=== PATIENT | male | born 1960 | race Caucasian/White ===

== ENCOUNTER → 2017-07-11 | Outpatient (CLI) | payer OTHER | LOC: FIMAGING 14:06 | PROVIDERS: ATTEND Family Medicine Sports Medicine | DX: R68.84 Jaw pain (principal); R51 Headache; W19.XXXS Unspecified fall, sequela ==

== ENCOUNTER → 2018-03-11 | Outpatient (CLI) | payer OTHER | LOC: FIMAGING 11:23 | PROVIDERS: ATTEND Physical Medicine & Rehabilitation Neuromuscular Medicine | DX: M43.16 Spondylolisthesis, lumbar region (principal); M51.36 Other intervertebral disc degeneration, lumbar region ==

== ENCOUNTER 2018-05-16 09:30 | Inpatient (IN) | payer OTHER ==
[2018-05-18] MEDS ORDERED: ACETAMINOPHEN 500 MG TAB PO ONE (05:42)
[2018-05-18] MEDS ORDERED: ceFAZolin 2 GM/DEXTROSE 100 ML IV ONE (05:42)
[2018-05-18] MEDS ORDERED: GABAPENTIN 300 MG CAP PO ONE (05:42)
[2018-05-18] MEDS ORDERED: LR 1,000 ML IV ONE (05:44)
[2018-05-18] MEDS ORDERED: BACITRACIN 50,000 UNITS/10 ML SYR IRR ONE (06:48)
[2018-05-18] MEDS ORDERED: BUPIVACAINE 0.25% 30 ML SDV ONE (06:48)
[2018-05-18] MEDS ORDERED: CITRATE DEXTROSE SOLN 500 ML BAG ONE (06:48)
[2018-05-18] MEDS ORDERED: EPINEPHrine 1 MG/ML INJ ONE (06:48)
[2018-05-18] MEDS ORDERED: CHLORHEXIDINE GLUC HIBICLENS 118 ML BTL TP ONE (06:48)
[2018-05-18] MEDS ORDERED: THROMBIN (BOVINE) 20,000 UNIT VIAL TP ONE (06:49)
--- NOTE | 2018-05-18 06:56 | PDHPUP ---
History & Physical Update H&P update statement: This history and physical update is based on an assessment of the patient which was completed after admission or registration (within 24 hours), but prior to the surgery/procedure. H&P update: H&P reviewed & patient examined, no change in patient's condition since H&P completed (Consents signed. Site marked and all questions answered.)
[2018-05-18] MEDS ORDERED: MIDAZOLAM 2 MG/2 ML VIAL ONE (07:10)
[2018-05-18] MEDS ORDERED: PROPOFOL/EMULSION 500 MG/50 ML BOTTLE IV ONE (07:10)
[2018-05-18] MEDS ORDERED: fentaNYL 100 MCG/2 ML INJ ONE ×2 (07:10→10:22)
[2018-05-18] MEDS ORDERED: morphINE PF 0.2 MG in SYRINGE INTRATHECAL 1 SYR IT ONE (07:27)
[2018-05-18] MEDS ORDERED: DEXAMETHASONE 4 MG/ML VIAL IVP PRN (07:47)
[2018-05-18] MEDS ORDERED: ALBUTEROL 3 ML DEYVIAL IH PRN (07:47)
[2018-05-18] MEDS ORDERED: ONDANSETRON 4 MG/2 ML VIAL IVP PRN ×2 (07:47→10:06)
[2018-05-18] MEDS ORDERED: LR 500 ML IV PRN (07:47)
[2018-05-18] MEDS ORDERED: PROMETHAZINE HCL 25 MG/ML INJ IVP PRN (07:47)
[2018-05-18] MEDS ORDERED: NALOXONE HCL 0.4 MG/ML INJ IVP PRN ×2 (07:47→10:06)
[2018-05-18] MEDS ORDERED: DIAZEPAM 5 MG/ML 1 ML SYR IVP PRN (07:47)
--- NOTE | 2018-05-18 07:47 | PDANEPAE ---
ANE Past Medical History - Cardiovascular History Hx Hypertension: No Hx Arrhythmias: No Hx Chest Pain: No Hx Coronary Artery / Peripheral Vascular Disease: No Hx CHF / Valvular Disease: No Hx Palpitations: No - Pulmonary History Hx COPD: No Hx Asthma/Reactive Airway Disease: No Hx Recent Upper Respiratory Infection: No Hx Oxygen in Use at Home: No Hx Sleep Apnea: No Sleep Apnea Screening Result - Last Documented: Negative Pulmonary History Comment: CURRENT URI 05/02/18 - Neurologic History Hx Cerebrovascular Accident: No Hx Seizures: No Hx Dementia: No - Endocrine History Hx Diabetes: No - Renal History Hx Renal Disorders: No - Liver History Hx Hepatic Disorders: No - Neurological & Psychiatric Hx Hx Neurological and Psychiatric Disorders: Yes Neurological / Psychiatric History Comment: DEPRESSION - Cancer History Hx Cancer: No - Congenital Disorder History Hx Congenital Disorders: No - GI History Hx Gastrointestinal Disorders: No - Other Health History Other Health History: DDD. NT TYREE LEGS/FEET - Chronic Pain History Chronic Pain: Yes (LOWER BACK) - Surgical History Prior Surgeries: TYREE CORNEAL REPLACEMENT 2016. LUMBAR LAMINECTOMY ANE Review of Systems Review of Systems: - Exercise capacity METS (RN): 5 METS ANE Patient History - Allergies Allergies/Adverse Reactions: No Known Allergies Allergy (Unverified 04/27/18 15:40) - Home Medications Home Medications: Sertraline HCl [Zoloft 50mg (*)] 50 mg PO DAILY 04/27/18 [Last Taken 05/17/18] Zolpidem Tartrate [Ambien 5MG (*)] 5 mg PO HS PRN 04/27/18 [Last Taken 05/17/18] - NPO status NPO Since - Liquids (Date): 05/17/18 NPO Since - Liquids (Time): 22:00 NPO Since - Solids (Date): 05/17/18 NPO Since - Solids (Time): 19:00 - Smoking Hx Smoking Status: Never smoked ANE Labs/Vital Signs - Vital Signs Blood Pressure: 128/79 Heart Rate: 55 Respiratory Rate: 16 O2 Sat (%): 94 Height: 175.26 cm Weight: 68.039 kg ANE Physical Exam - Airway Neck exam: FROM Mallampati Score: Class 1 Mouth exam: normal dental/mouth exam - Pulmonary Pulmonary: no respiratory distress, no rales or rhonchi, clear to auscultation - Cardiovascular Cardiovascular: regular rate and rhythym, no murmur, rub, or gallop - ASA Status ASA Status: II ANE Anesthesia Plan Anesthesia Plan: general endotracheal anesthesia
[2018-05-18] MEDS ORDERED: PROPOFOL 200 MG/20 ML VIAL ONE (08:32)
[2018-05-18] MEDS ORDERED: RANITIDINE 50 MG/2 ML VIAL ONE (08:33)
[2018-05-18] MEDS ORDERED: METOCLOPRAMIDE 10 MG/2 ML VIAL ONE (08:33)
[2018-05-18] MEDS ORDERED: ROCURONIUM 50 MG/5 ML VIAL ONE (08:33)
[2018-05-18] MEDS ORDERED: ONDANSETRON 4 MG/2 ML VIAL ONE (08:33)
[2018-05-18] MEDS ORDERED: ePHEDrine SULFATE 25 MG/5 ML SYR ONE (08:33)
[2018-05-18] MEDS ORDERED: DEXAMETHASONE 4 MG/ML VIAL ONE (08:33)
[2018-05-18] MEDS ORDERED: KETOROLAC 30 MG/1 ML SDV ONE (08:33)
[2018-05-18] MEDS ORDERED: LIDOCAINE 2% 5 ML SDV ONE (08:33)
[2018-05-18] MEDS ORDERED: SUGAMMADEX SODIUM 200 MG/2 ML VIAL IVP ONE (08:33)
[2018-05-18] MEDS ORDERED: LACTULOSE 20 GM/30 ML UDCUP PO PRN (10:06)
[2018-05-18] MEDS ORDERED: MAGNESIUM HYDROXIDE 30 ML UDCUP PO PRN (10:06)
[2018-05-18] MEDS ORDERED: POLYETHYLENE GLYCOL 3350 17 GM PKT PO PRN (10:06)
[2018-05-18] MEDS ORDERED: diphenhydrAMINE 25 MG CAP PO PRN (10:06)
[2018-05-18] MEDS ORDERED: ONDANSETRON DISINTEGRATING 4 MG TAB PO PRN (10:06)
[2018-05-18] MEDS ORDERED: BISACODYL 10 MG SUPP PR PRN (10:06)
--- NOTE | 2018-05-18 10:14 | POSTOPPROG ---
Post Op Note Date of Operation: 05/18/18 Surgeon: Nixon Pham Residential Carpenter: NANCI Rivera Anesthesia: GET(General Endotracheal) Pre-op Diagnosis: lumbar radiculopathy, stenosis Post-op Diagnosis: lumbar radiculopathy, stenosis Indication: lumbar radiculopathy, stenosis Procedure: right L5/S1 TLIF/PSF Inf/Abcess present in the surg proc area at time of surgery?: No EBL: 50-100 Complications: none Drains: Gerson GARCIA Addendum - Addendum .: S: right leg "heaviness". Denies any pain O: NAD A&OX3 MAEx4 5/5 incision A/P 57M s/p right L5/S1 TLIF/PSF -Optimize pain management -PT/OT -SHANEL drain x1 -Post op xrays pending -DVT prophx: TEDs, SCDs, Lovenox okay POD1 -Please notify NS with any change in neuro/motor exam
[2018-05-18] MEDS ORDERED: NS 1,000 ML IV SCH (10:15)
[2018-05-18] MEDS ORDERED: METHOCARBAMOL 750 MG TAB ONE (10:23)
[2018-05-18] MEDS ORDERED: DIAZEPAM 5 MG/ML 1 ML SYR ONE (10:23)
[2018-05-18] MEDS: fentaNYL 100 MCG/2 ML INJ IVP PRN ×2 (10:25→10:40)
--- NOTE | 2018-05-18 11:02 | POSTANESTH ---
Post Anesthetic Evaluation Cardiovascular Status: Normal, Stable, Similar to Pre-Op Cond Respiratory Status: Normal, Stable, Similar to Pre-op Cond. Level of Consciousness/Mental Status: Mildly Sleepy, Arousable Pain Control: Adequate, Prn Tx Ordered Nausea/Vomiting Control: Adequate, Prn Tx Ordered Complications Possibly Related to Anesthesia: None Noted
--- NOTE | 2018-05-18 11:14 | PDMN ---
Medical Necessity Medical necessity: [facility] [place] S820 lumbar fusion 2 days- INPT ONLY : OP: R L5/ S1 TLIF AUTH [id number] APPROVED FOR INPT
--- NOTE | 2018-05-18 11:18 | GOP ---
[f rep st] OPERATIVE REPORT DATE OF OPERATION: 05/18/2018 SURGEON: Nixon Pham MD HUMAN RESOURCES ASSISTANT: Kanchan Rivera, NANCI ANESTHESIA: General. PREOPERATIVE DIAGNOSIS: 1. L5-S1 lumbar spondylosis with right lateral recess foraminal stenosis. 2. History of left-sided hemilaminotomy decompression. 3. Treatment refractory to nonoperative intervention. POSTOPERATIVE DIAGNOSIS: 1. L5-S1 lumbar spondylosis with right lateral recess foraminal stenosis. 2. History of left-sided hemilaminotomy decompression. 3. Treatment refractory to nonoperative intervention. PROCEDURE PERFORMED: 1. Posterior arthrodesis with approach to L5-S1. 2. Posterolateral fusion with bilateral pedicle screw placement at L5 and S1 from the Engiver 4.75 system. 3. Use of intraoperative fluoroscopy, less than 1 hour physician time. 4. Use of intraoperative 3D Stealth navigation. 5. Use of the operating microscope. 6. Posterolateral fusion on the left between L5 and S1 with morselized autograft and allograft. 7. Right-sided L5-S1 hemilaminotomy with facetectomy, diskectomy, interbody fusion, use a 7 x 28 mm titanium PEEK elevate cage filled with morselized autograft and allograft. 8. Injection of preservative-free intrathecal narcotics. FINDINGS: per imaging ESTIMATED BLOOD LOSS: 100 mL. INDICATIONS: The patient is a very pleasant gentleman who has undergone 2 prior decompressions. He presented with right lower extremity pain. Imaging demonstrated diffuse spondylosis with right severe L5-S1 foraminal stenosis. Please note, he has a sacralized S1, S2 segment. After discussion of risks, benefits, and alternatives, and after failing nonoperative intervention, we decided to proceed forth with surgery as described above. DESCRIPTION OF PROCEDURE: Patient was brought to the operating theater and underwent general anesthesia without complications. He had Venodynes, MIRNA hose , appropriate lines placed by Anesthesia. He was flipped prone onto a Gerson table and all bony processes inspected and padded. The previous lumbar incision was identified and marked and prepped and draped in usual sterile surgical fashion. A time-out was completed per protocol and the patient received antibiotics within 1 hour of incision. The incision was infiltrated with Marcaine with epinephrine. Using monopolar, the incision was taken down midline through the lumbar dorsal fascia and a subperiosteal dissection carried out to the transverse process of L5 and S1, again noting that the S1-S2 segment was sacralized. Care was taken to preserve the bilateral L4-5 facet joint. Deep retractors were placed to maintain our exposure. We confirmed our level using lateral fluoroscopy. We attached the 3D Stealth navigation clamp to the spinous process of L5 and completed a 3D Stealth navigation spin. Using 3D Stealth navigation, we placed the dispatcher ship pilot holes for the bilateral pedicle screws in L5 and S1. All holes were manually palpated with no evidence of any cortical breaches. We then tapped and placed 6.5 x 50 mm screws bilaterally in L5, right-sided S1, and a 6.5 x 45 mm screw on the left at S1, all from Engiver 4.75 system. Another 3D Stealth navigation spin demonstrated good placement of the hardware. The microscope brought into field to assist with microscopic dissection and to maintain illumination and magnification. Using a combination of bur tip on the drill bit, Kerrison punches, we completed a right-sided L5-S1 hemilaminotomy with aggressive facetectomy and foraminotomy. We distracted the interspace and completed right-sided L5-S1 diskectomy. We prepared the cartilaginous endplates and measured the interbody space. We then placed a 7 x 28 mm titanium PEEK elevate cage filled with morselized autograft and allograft anteriorly and toward the midline. We packed additional morcellized autograft in the disk space for the interbody fusion. We let down the distraction and decorticated the bone on the left side between L5 and S1. Two lordotic rods were placed into the heads of the screws between L5 and S1 and secured down with cap screws, which were then tightened per the funeral director/embalmer's setting. We then injected preservative-free intrathecal narcotics. A drain was left in the subfascial space. The wound then closed in multiple layers, including Vicryl sutures om deep layers and Dermabond for the skin. The patient's wounds were dressed sterilely. He was flipped supine onto the transfer cart, where he was awakened, extubated, and taken to recovery room in stable condition. There were no complications and no noted changes on neuromonitoring throughout the procedure. COMPLICATIONS: None. /[id number]/MODL MTDD
[2018-05-18] MEDS: ACETAMINOPHEN 500 MG TAB PO SCH ×2 (13:25→22:07)
[2018-05-18] MEDS: METHOCARBAMOL 750 MG TAB PO PRN ×2 (13:25→20:43)
[2018-05-18] MEDS: ceFAZolin 2 GM/DEXTROSE 100 ML IV SCH ×2 (13:26→22:07)
[2018-05-18] MEDS: oxyCODONE IR 5 MG TAB PO PRN ×2 (15:33→20:44)
[2018-05-18] MEDS: SENNOSIDES/DOCUSATE SODIUM TAB PO SCH (20:42)
[2018-05-18] MEDS: MELATONIN 3 MG TAB PO SCH (20:43)
[2018-05-18] MEDS: FAMOTIDINE 20 MG TAB PO SCH (20:43)
[2018-05-18] MEDS: BENZONATATE 100 MG CAP PO PRN (20:44)
[2018-05-19] MEDS: oxyCODONE IR 5 MG TAB PO PRN ×4 (04:15→20:31)
[2018-05-19] MEDS: ACETAMINOPHEN 500 MG TAB PO SCH ×3 (06:04→21:52)
--- NOTE | 2018-05-19 07:22 | NEUSURGPN ---
Date of Surgery: 05/18/18 Post Op Day: 1 Assessment/Plan: 57M s/p right L5/S1 TLIF/PSF -Optimize pain management -PT/OT -SHANEL drain x1 (110 cc output since surgery) -Wear brace when out of bed -Post op xrays pending -DVT prophx: TEDs, SCDs, Lovenox okay POD1 -Please notify NS with any change in neuro/motor exam Discussed with Dr. Pham. Subjective: Doing well this morning. No lower extremity pain, numbness, tingling. Objective: Awake. Alert. PERRL. EOMI Following commands Strength full at 5/5 - Physician Discussed Patient with : Ankit Neurosurgery Physical Exam - Vitals, I&O, Labs I and O 05/18/18 05/19/18 05/20/18 05:59 05:59 05:59 Intake Total 1275 Output Total 2060 Balance -785 Weight 68.039 kg Intake: Oral (ml) 275 IV Intake (ml) 700 IV Infused (ml) 300 Ns 1,000 ml @ 75 mls/hr 200 IV CONT JOHN Rx#: [id number] ceFAZolin 2 GM/DEXTROSE 100 100 ml @ 200 mls/hr IV Q8HRS JOHN Rx#:[id number] Output: Urine (ml) 1850 Catheter 1850 Estimated Blood Loss (ml) 100 SHANEL Drain Output (ml) 110 Back Gerson Fernandez 110 Other: Number of Voids Catheter 1 Vital Signs Temp Pulse Resp BP Pulse Ox 37.0 C 56 L 16 91/45 L 95 05/19/18 04:00 05/19/18 04:00 05/19/18 04:00 05/19/18 04:00 05/19/18 04:00 ICD10 Worksheet Patient Problems: Problems Problem Status Onset Lumbar spondylosis Acute - ICD10 Problem Qualifiers (1) Lumbar spondylosis
[2018-05-19] MEDS: SENNOSIDES/DOCUSATE SODIUM TAB PO SCH ×2 (09:44→20:31)
[2018-05-19] MEDS: FAMOTIDINE 20 MG TAB PO SCH ×2 (09:45→20:32)
[2018-05-19] MEDS: SERTRALINE HCL 50 MG TAB PO SCH (09:45)
[2018-05-19] MEDS: ENOXAPARIN 40 MG/0.4 ML SYR SC SCH (09:46)
[2018-05-19] MEDS: BENZONATATE 100 MG CAP PO PRN ×2 (10:02→20:37)
[2018-05-19] MEDS: METHOCARBAMOL 750 MG TAB PO PRN ×2 (13:23→21:52)
--- NOTE | 2018-05-19 14:27 | ASMTCMCOM ---
CM Note CM Note Notes: Met with patient to discuss d/c planning needs. Patient does not anticipate needing any DME at home, he is well set-up already. Therapy has evaluated and cleared for home. No needs identified at this time. CM available if needed. Plan: Independent Date Signed: 05/19/2018 02:26 PM Electronically Signed By:Brenda Bell RN
[2018-05-19] MEDS: MELATONIN 3 MG TAB PO SCH (20:38)
[2018-05-19] MEDS: ZOLPIDEM TARTRATE 5 MG TAB PO PRN (21:53)
[2018-05-20] MEDS: ZOLPIDEM TARTRATE 5 MG TAB PO PRN (00:35)
[2018-05-20] MEDS: METHOCARBAMOL 750 MG TAB PO PRN ×3 (04:14→19:39)
[2018-05-20] MEDS: oxyCODONE IR 5 MG TAB PO PRN ×5 (04:14→23:30)
[2018-05-20] MEDS: BENZONATATE 100 MG CAP PO PRN (04:27)
[2018-05-20] MEDS: ACETAMINOPHEN 500 MG TAB PO SCH ×3 (06:37→21:59)
--- NOTE | 2018-05-20 09:14 | NEUSURGPN ---
Date of Surgery: 05/18/18 Post Op Day: 2 Assessment/Plan: Assessment: 57 yo male that is s/p right L5/S1 TLIF/PSF POD #2 Plan: -Optimize pain management-controlled with current pain medications -PT/OT-CPM -SHANEL drain to be removed this am -Wear brace when out of bed-tolerating well -Post op xrays look good-no complications or loosening -DVT prophx: TEDs, SCDs, Lovenox okay POD 1 -pt walking well and tolerating the brace well -Please notify NS with any changes in neuro/motor exam -discussed with Dr. Pham -plan for dc later today if continues to do well Subjective: Awake and alert. NAD. Pt with expected lower back pain. Eating/drinking and voiding. No f/c/n/v/d. No suh/neck/chest/abd or gu complaints. Objective: AAO x 3, PERRLA/EOMI no droop CN 2-12 grossly intact +lt touch 5/5 BUE/BLE = CDI SHANEL in place-to be removed Neuro Check Frequency: per routine Urinary Catheter in Place: No - Physician Discussed Patient with : Ankit Neurosurgery Physical Exam - Vitals, I&O, Labs I and O 05/19/18 05/20/18 05/21/18 05:59 05:59 05:59 Intake Total 1275 400 Output Total 2060 1545 Balance -785 -1145 Weight 68.039 kg Intake: Oral (ml) 275 400 IV Intake (ml) 700 IV Infused (ml) 300 Ns 1,000 ml @ 75 mls/hr 200 IV CONT JOHN Rx#: [id number] ceFAZolin 2 GM/DEXTROSE 100 100 ml @ 200 mls/hr IV Q8HRS JOHN Rx#:[id number] Output: Urine (ml) 1850 1400 Catheter 1850 725 Urinal 675 Estimated Blood Loss (ml) 100 SHANEL Drain Output (ml) 110 145 Back Gerson Fernandez 110 145 Other: Number of Voids Catheter 1 1 Urinal 2 Vital Signs Temp Pulse Resp BP Pulse Ox 37.1 C 53 L 15 101/53 L 93 05/20/18 07:52 05/20/18 07:52 05/20/18 07:52 05/20/18 07:52 05/20/18 07:52 ICD10 Worksheet Patient Problems: Problems Problem Status Onset Lumbar spondylosis Acute
--- NOTE | 2018-05-20 09:33 | ASMTLACE ---
RYANE Length of stay for Answers: 2 days current admission Acuity / Level of Answers: Yes Care: Did the patient have an inpatient admission? Comorbidities - select Answers: Opioid dependence all that apply / Chronic pain # of Emergency department Answers: 0 visits in the last 6 months Social determinants Answers: Mental health diagnosis (anxiety, depression, pers onality disorders, etc.) Score: 12 Date Signed: 05/20/2018 09:33 AM Electronically Signed By:Naz Rodríguez RN
[2018-05-20] MEDS: SENNOSIDES/DOCUSATE SODIUM TAB PO SCH ×2 (10:29→19:40)
[2018-05-20] MEDS: SERTRALINE HCL 50 MG TAB PO SCH (10:29)
[2018-05-20] MEDS: FAMOTIDINE 20 MG TAB PO SCH ×2 (10:30→19:39)
[2018-05-20] MEDS: ENOXAPARIN 40 MG/0.4 ML SYR SC SCH (10:33)
[2018-05-20] MEDS ORDERED: FAMOTIDINE 20 MG TAB PO ONE (13:45)
[2018-05-20] MEDS ORDERED: diphenhydrAMINE 25 MG CAP PO ONE (13:45)
[2018-05-20 15:54] LABS: PLATELET COUNT 190 10^3/uL (150-400)
--- NOTE | 2018-05-20 16:18 | PDHOSCONS ---
History and Physical - Chief Complaint Fever - History of Present Illness Marcos Romero is a 57 yo M who is POD #2 s/p R L5/S1 TLIF/PSF who had new onset fever and hypoxia earlier today. Patient reports that he has had a URI recently which was evaluated prior to surgery for which he was placed on an anti -tussive with no testing or other treatments prescribed. He states heh has a persistent cough with minimal production. He also has a new onset of rash on arms b/l and upper back which is not painful or pruritic. He denies any headaches, chest pain, SOB, rhinorrhea, nasal congestion, dysuria, d/c, n/v. History Information - Allergies/Home Medication List Allergies/Adverse Reactions: No Known Allergies Allergy (Unverified 04/27/18 15:40) Home Medications: Sertraline HCl [Zoloft 50mg (*)] 50 mg PO DAILY 04/27/18 [Last Taken 05/17/18] Zolpidem Tartrate [Ambien 5MG (*)] 5 mg PO HS PRN 04/27/18 [Last Taken 05/17/18] Benzonatate 200 mg PO TID PRN 05/18/18 [Last Taken Unknown] I have personally reviewed and updated: family history, medical history, social history, surgical history - Past Medical History no pertinent PMH - Surgical History Reports: spinal surgery - Family History Positive for: non-pertinent - Social History Smoking Status: Never smoked Review of Systems Review of Systems: ROS: 10pt was reviewed & negative except for what was stated in HPI & below Physical Exam Physical Exam: Temp Pulse Resp BP Pulse Ox 37.1 C 53 L 15 101/53 L 93 05/20/18 07:52 05/20/18 07:52 05/20/18 07:52 05/20/18 07:52 05/20/18 07:52 O2 (L/minute) 1 Constitutional: no apparent distress Eyes: PERRL Ears, Nose, Mouth, Throat: moist mucous membranes Cardiovascular: regular rate and rhythym Respiratory: no respiratory distress, clear to auscultation Gastrointestinal: soft, non-tender abdomen Genitourinary: No nguyen in urethra Skin: warm, rash (non-blanching erythema on b/l UE and upper back ) Musculoskeletal: pain with ROM Neurologic: AAOx3 Psychiatric: interacting appropriately Lab Data & Imaging Review 05/20/18 14:30 WBC 10.49 10^3/uL (3.80-9.50) H 05/20/18 14:30 RBC 3.79 10^6/uL (4.40-6.38) L 05/20/18 14:30 Hgb 12.1 g/dL (13.7-17.5) L 05/20/18 14:30 Hct 35.8 % (40.0-51.0) L 05/20/18 14:30 MCV 94.5 fL (81.5-99.8) 05/20/18 14:30 MCH 31.9 pg (27.9-34.1) 05/20/18 14:30 MCHC 33.8 g/dL (32.4-36.7) 05/20/18 14:30 RDW 12.2 % (11.5-15.2) 05/20/18 14:30 Plt Count 190 10^3/uL (150-400) 05/20/18 14:30 MPV 9.9 fL (8.7-11.7) 05/20/18 14:30 Neut % (Auto) 75.1 % (39.3-74.2) H 05/20/18 14:30 Lymph % (Auto) 16.7 % (15.0-45.0) 05/20/18 14:30 [place] % (Auto) 6.8 % (4.5-13.0) 05/20/18 14:30 Eos % (Auto) 0.9 % (0.6-7.6) 05/20/18 14:30 Baso % (Auto) 0.1 % (0.3-1.7) L 05/20/18 14:30 Nucleat RBC Rel Count 0.0 % (0.0-0.2) 05/20/18 14:30 Absolute Neuts (auto) 7.89 10^3/uL (1.70-6.50) H 05/20/18 14:30 Absolute Lymphs (auto) 1.75 10^3/uL (1.00-3.00) 05/20/18 14:30 Absolute Monos (auto) 0.71 10^3/uL (0.30-0.80) 05/20/18 14:30 Absolute Eos (auto) 0.09 10^3/uL (0.03-0.40) 05/20/18 14:30 Absolute Basos (auto) 0.01 10^3/uL (0.02-0.10) L 05/20/18 14:30 Absolute Nucleated RBC 0.00 10^3/uL (0-0.01) 05/20/18 14:30 Immature Gran % 0.4 % (0.0-1.1) 05/20/18 14:30 Immature Gran # 0.04 10^3/uL (0.00-0.10) 05/20/18 14:30 Assessment & Plan Assessment: 1. Post Op Fever with Hypoxia - Febrile (not recorded in EMR) this afternoon with mild hypoxia, CBC this AM with mild leukocytosis 10.49 - Recent hx of viral URI with continued mild cough, no other URI symptoms present - Also with new rash on UE b/l and upper back, non-painful, non-pruritic - CXR performed which shows pulm vascular congestion, atelectasis in RLL, no infiltrates or effusions present, no prior XR to compare to - Differential is broad given recent spinal surgery, may also be viral syndrome given recent infection - Would hold off on antibiotics for now, if again febrile would start empirically - Followup Blood cultures x2 - Respiratory PCR ordered to evaluate for viral etiology - Will order UA despite pt denying dysuria - DVT/PE on differential given hypoxia and recent surgery , however not tachycardic, would defer CTA chest unless symptoms continue or worsen - Continue incentive spirometry given atelectasis seen on CXR 2. Rash - New rash on UE b/l and upper back, non-painful, non-pruritic - May be viral vs. allergic rxn - Can trial Benadryl PRN to see if improved Thank you for the consult. Hospital medicine will continue to follow patient throughout the hospitalization.
[2018-05-20] MEDS: MELATONIN 3 MG TAB PO SCH (22:21)
[2018-05-21] MEDS: oxyCODONE IR 5 MG TAB PO PRN ×2 (04:36→09:39)
[2018-05-21] MEDS: METHOCARBAMOL 750 MG TAB PO PRN (04:36)
[2018-05-21] MEDS: ACETAMINOPHEN 500 MG TAB PO SCH (06:12)
[2018-05-21 08:18] VITALS: BP 97/65
--- NOTE | 2018-05-21 08:25 | NEUSURGPN ---
Date of Surgery: 05/18/18 Post Op Day: 3 Assessment/Plan: Assessment: 57 yo male that is s/p right L5/S1 TLIF/PSF POD #3 Plan: -Optimize pain management-controlled with current pain medications -PT/OT-CPM -SHANEL drain removed -Wear brace when out of bed-tolerating well -Post op xrays look good-no complications or loosening -pt had rash and low grade temp-IM looking into this -DVT prophx: TEDs, SCDs, Lovenox okay POD 1 -pt walking well and tolerating the brace well -Please notify NS with any changes in neuro/motor exam -discussed with Dr. Pham -plan for dc later today if cleared from IM Subjective: Awake and alert. NAD. Pt has rash that is better overall. No suh/neck/chest/ abd or gu complaints. Objective: AAO x 3, PERRLA/EOMI no droop CN 2-12 grossly intact +lt touch 5/5 BUE/BLE = CDI SHANEL site looks good Neuro Check Frequency: per routine Urinary Catheter in Place: No - Physician Discussed Patient with : Ankit Neurosurgery Physical Exam - Vitals, I&O, Labs I and O 05/20/18 05/21/18 05/22/18 05:59 05:59 05:59 Intake Total 400 500 Output Total 1545 500 250 Balance -1145 0 -250 Intake: Oral (ml) 400 500 Output: Urine (ml) 1400 500 250 Catheter 725 Urinal 675 500 250 SHANEL Drain Output (ml) 145 Back Gerson Fernandez 145 Other: Number of Voids Catheter 1 Toilet 1 Urinal 2 1 Microbiology 05/20/18 15:50 Respiratory Panel (PCR) - Final Nasal, Sinus - Anaerobic Tube/Swab No Organism Detected By Pcr Vital Signs Temp Pulse Resp BP Pulse Ox 37.2 C 70 17 97/65 L 90 L 05/21/18 08:00 05/21/18 08:00 05/21/18 08:00 05/21/18 08:00 05/21/18 08:00 Laboratory Results 05/20/18 14:30 05/21/18 04:20 ICD10 Worksheet Patient Problems: Problems Problem Status Onset Lumbar spondylosis Acute
[2018-05-21] MEDS: SENNOSIDES/DOCUSATE SODIUM TAB PO SCH (09:09)
[2018-05-21] MEDS: FAMOTIDINE 20 MG TAB PO SCH (09:09)
[2018-05-21] MEDS: SERTRALINE HCL 50 MG TAB PO SCH (09:10)
[2018-05-21] MEDS: ENOXAPARIN 40 MG/0.4 ML SYR SC SCH (09:10)
[2018-05-21] MEDS: BENZONATATE 100 MG CAP PO PRN (09:35)
--- NOTE | 2018-05-21 10:53 | ASMTCMCOM ---
CM Note CM Note Notes: Pt medically stable for d/c, no CM d/c needs identified. Date Signed: 05/21/2018 10:53 AM Electronically Signed By:LUANA Cummings
== END 2018-05-21 10:50 | disposition home or self-care (01) | DRG 460 ==
LOC: F3N 05-18 05:25
PROVIDERS: ADMIT Neurological Surgery; ATTEND Neurological Surgery
PROC: 0SG30AJ Fusion of Lumbosacral Joint with Interbody Fusion Device, Posterior Approach, Anterior Column, Open Approach (ICD-10-PCS; principal; 2018-05-18 07:15)
PROC: 00NY0ZZ Release Lumbar Spinal Cord, Open Approach (ICD-10-PCS; principal; 2018-05-18 07:15)
PROC: 4A10X4G Monitoring of Central Nervous Electrical Activity, Intraoperative, External Approach (ICD-10-PCS; principal; 2018-05-18 07:15)
PROC: B01B1ZZ Fluoroscopy of Spinal Cord using Low Osmolar Contrast (ICD-10-PCS; principal; 2018-05-18 07:15)
PROC: 8E0WXBZ Computer Assisted Procedure of Trunk Region (ICD-10-PCS; principal; 2018-05-18 07:15)
DX: M48.07 Spinal stenosis, lumbosacral region (principal); M51.17 Intervertebral disc disorders with radiculopathy, lumbosacral region; R50.9 Fever, unspecified; R09.02 Hypoxemia; R21 Rash and other nonspecific skin eruption; J06.9 Acute upper respiratory infection, unspecified; Z98.1 Arthrodesis status; Z94.7 Corneal transplant status
CPT/HCPCS: 97116-GP; 97161-GP; 97166-GO; 97530-GP; 97535-GO; C1713; J0171; J0690; J1100; J1650; J1885; J2250; J2270; J2274; J2405; J2704; J2765; J2780; J3010; J3360

== ENCOUNTER → 2018-05-30 | Outpatient (CLI) | payer OTHER | LOC: FIMAGING 15:01 | PROVIDERS: ATTEND Family Medicine | DX: R05 Cough (principal) ==

== ENCOUNTER → 2018-06-21 | Outpatient (CLI) | payer OTHER | LOC: FIMAGING 11:42 | PROVIDERS: ATTEND Physician Assistant | DX: M51.16 Intervertebral disc disorders with radiculopathy, lumbar region (principal); Z98.1 Arthrodesis status ==

== ENCOUNTER → 2018-08-04 | Outpatient (CLI) | payer OTHER | LOC: FIMAGING 11:46 ==